=== PATIENT | female | born 1970 | race Two or more races ===

== ENCOUNTER 2017-06-17 06:51 | Day surgery (SDC) | payer OTHER | END 2017-06-17 13:40 | disposition home or self-care (01) | LOC: CIR.AMB 06:51 | DX: N84.0 Polyp of corpus uteri (principal) ==

== ENCOUNTER 2019-08-19 10:54 | Emergency (ER) | payer OTHER ==
[~2019-08-19] VITALS: Ht 157.5 cm; Wt 67.1 kg
== END 2019-08-19 14:03 | disposition home or self-care (01) ==
LOC: ER 10:54
DX: K52.89 Other specified noninfective gastroenteritis and colitis (principal)

== ENCOUNTER 2022-05-17 15:27 | Emergency (ER) | payer OTHER ==
[~2022-05-17] VITALS: Ht 157.5 cm; Wt 68.0 kg
== END 2022-05-17 20:27 | disposition home or self-care (01) ==
LOC: ER 15:27
DX: S92.354A Nondisplaced fracture of fifth metatarsal bone, right foot, initial encounter for closed fracture (principal); X58.XXXA Exposure to other specified factors, initial encounter; Y93.9 Activity, unspecified; Y92.9 Unspecified place or not applicable; Y99.9 Unspecified external cause status

== ENCOUNTER 2025-04-11 07:43 | Emergency (ER) | payer OTHER ==
[~2025-04-11] VITALS: Ht 157.5 cm; Wt 70.3 kg
[2025-04-11] MEDS ORDERED: ONDANSETRON HCL 2 MG/ML VIAL IV ONE (08:15)
[2025-04-11] MEDS ORDERED: BENZONATATE 200 MG CAPSULE PO ONE (08:15)
[2025-04-11] MEDS ORDERED: FAMOtidine 10 MG/ML (4ML VIAL) IV PUSH ONE (08:15)
[2025-04-11] MEDS ORDERED: FAMOTIDINE/PF 20 MG/2 ML VIAL ONE (08:18)
[2025-04-11] MEDS ORDERED: ONDANSETRON HCL 2 MG/ML VIAL ONE (08:18)
[2025-04-11 09:11] LABS: BASO % 0.0 % (0.1-1.2); EOS # 0.03 (0.04-0.54); EOS % 1.2 % (0.7-7.0); LYMPH # 1.00 (1.18-3.74); LYMPH % 39.2 % (19.3-53.1); MEAN PLATELET VOLUME 10.70 fl (9.4-12.4); MONO # 0.26 (0.24-0.82); MONO % 10.2 % (4.7-12.5); NEUT # 1.26 (1.56-6.13); NEUT % 49.4 % (34.0-71.1); RED CELL DISTRIBUTION WIDTH 14.5 % (11.6-14.4)
[2025-04-11 09:35] LABS: ALT/SGPT 26.0 U/L (12-78); AST/SGOT 22.0 U/L (15-37); BILIRUBIN TOTAL 0.36 mg/dL (0.3-1.2); BUN CREA RATIO 13.0 (7.0-25.0); CREATININE SERUM 0.75 mg/dL (0.55-1.02); GFR 80.83; GLOBULINA 4.0 G/DL (2.4-3.5); GLUCOSE FASTING 102.0 mg/dL (65-100); OSMOLALITY SERUM 280.0 MOSM/KG (275-295)
[2025-04-11 09:43] LABS: URINE APPEARANCE Cloudy; URINE BILIRRUBIN Small (NEGATIVE); URINE BLOOD Negative; URINE COLOR Dark Yellow; URINE GLUCOSE Negative (NEGATIVE); URINE KETONE Trace (NEGATIVE); URINE LEUKOCYTE Large; URINE NITRATE Negative; URINE PROTEIN 30 (NEGATIVE); URINE UROBILINOGEN 0.2 E.U./dl
[2025-04-11 09:46] LABS: URINE BACTERIA 7458.9 uL (0.0-1933); URINE CAST 1.61 uL (0.0-1.40); URINE EPITHELIAL CELLS 46.4 uL (0.0-38.8); URINE RBC 64.8 uL (0.0-20.8); URINE WBC 1500.4 uL (0.0-23.2)
[2025-04-11 09:47] LABS: COVID-19 AG NEGATIVE (NEGATIVE)
[2025-04-11 10:00] LABS: URINE CRYSTALS MODERATE /HPF; URINE MUCUS MODERATE
[2025-04-11 10:01] LABS: TYPE CELLS SQUAMOUS
[2025-04-11] MEDS ORDERED: METRONIDAZOLE500 MG PO (10:14)
[2025-04-11] MEDS ORDERED: PROBIOTIC1 EAC2 PO (10:14)
[2025-04-11] MEDS ORDERED: CIPRO500 MG PO (10:14)
[2025-04-11] MEDS ORDERED: PEPCID AC20 MG PO (10:14)
== END 2025-04-11 10:21 | disposition home or self-care (01) ==
LOC: ER 07:44
PROVIDERS: General Practice
DX: R19.7 Diarrhea, unspecified (principal); R05.9 Cough, unspecified; Z20.822 Contact with and (suspected) exposure to COVID-19